=== PATIENT | male | born 1965 | race Caucasian/White ===

== ENCOUNTER 2017-12-11 13:08 | Emergency (ER) | payer SELFPAY ==
[2017-12-11] MEDS ORDERED: IOHEXOL 350 MG/ML 10 ML VIAL (for RAD DIAG) IVCONTRAST ONE (13:09)
[2017-12-11 13:11] VITALS: BP 145/82; PULSE 78; RESP 16; TEMP 98.1; O2SAT 99
[2017-12-11] MEDS ORDERED: SODIUM CHLOR 0.9% 1000 ML INJ 1,000 ML IV SCH (13:15)
[2017-12-11 13:18] VITALS: PULSE 76; RESP 18; O2SAT 98
[2017-12-11 13:21] VITALS: PULSE 79; RESP 18; O2SAT 98
[2017-12-11] MEDS ORDERED: MORPHINE SULFATE 2 MG/ML SYRINGE IV PUSH ONE (13:30)
[2017-12-11] MEDS ORDERED: ONDANSETRON HCL 4 MG/2 ML VIAL IV PUSH ONE (13:30)
--- NOTE | 2017-12-11 13:39 | PD ---
HPI Chief Complaint: GI Complaint Time Seen by Provider: 13:15 Travel History International Travel<30 days: No Contact w/Intl Traveler<30days: No Traveled to known affect area: No History of Present Illness HPI 52-year-old male that presents to the ED for evaluation of severe abdominal pain on the umbilicus moving to the right side. Per patient he has had this for the past 3 days but the pain actually did not became more severe until yesterday. Per patient he went to an urgent care and told to come here for CT scan to rule out appendicitis. Per patient he has had nausea and vomiting and abdominal pain on the umbilicus for the past 3 days but more severe again since yesterday. Pain per patient is 10 out of 10 is stabbing. No history of surgeries to his abdomen. No history of trauma or injury. He does feel he now shows but no vomiting and no bowel movement issues. No fevers chills or sweats. Last ate around 1030 this morning. Has no allergies to medication. Has not taken anything for this. PFS Past Medical History Musculoskeletal: Yes ("BACK PROBLEMS") Past Surgical History Surgical History: No Previous Surgery Social History Alcohol Use: Yes Tobacco Use: Yes Substance Use: No Allergies-Medications (Allergen,Severity, Reaction): Coded Allergies: No Known Allergies (Unverified , 12/11/17) Reported Meds & Prescriptions Reported Meds & Active Scripts Active Diclofenac Sodium DR (Diclofenac Sodium) 75 Mg Tabdr 75 Mg PO BID PRN Review of Systems Except as stated in HPI: all other systems reviewed are Neg Physical Exam Narrative GENERAL: SKIN: Warm and dry. HEAD: Atraumatic. Normocephalic. EYES: Pupils equal and round. No scleral icterus. No injection or drainage. ENT: No nasal bleeding or discharge. Mucous membranes pink and moist. Tongue is midline. No Uvula deviation. NECK: Trachea midline. No JVD. CARDIOVASCULAR: Regular rate and rhythm. No murmurs, S3, S4. RESPIRATORY: No accessory muscle use. Clear to auscultation. Breath sounds equal bilaterally. GASTROINTESTINAL: Abdomen soft, very tender to palpation on the right lower quadrant and umbilicus area, nondistended. Hepatic and splenic margins not palpable. Patient does have what appears to be bulging of the umbilicus MUSCULOSKELETAL: Extremities without clubbing, cyanosis, or edema. No obvious deformities. NEUROLOGICAL: Awake and alert. No obvious cranial nerve deficits. Motor grossly within normal limits. Five out of 5 muscle strength in the arms and legs. Normal speech. PSYCHIATRIC: Appropriate mood and affect; insight and judgment normal. Data Data Last Documented VS Vital Signs Date Time Temp Pulse Resp B/P (MAP) Pulse Ox O2 Delivery O2 Flow Rate FiO2 12/11/17 15:10 70 18 141/84 (103) 98 Room Air 12/11/17 13:11 98.1 Orders Orders Complete Blood Count With Diff (12/11/17 13:15) Comprehensive Metabolic Panel (12/11/17 13:15) Lipase (12/11/17 13:15) Lactic Acid (12/11/17 13:15) Prothrombin Time / Inr (Pt) (12/11/17 13:15) Act Partial Throm Time (Ptt) (12/11/17 13:15) Urinalysis - C+S If Indicated (12/11/17 13:15) Iv Access Insert/Monitor (12/11/17 13:15) Ecg Monitoring (12/11/17 13:15) Oximetry (12/11/17 13:15) Sodium Chlor 0.9% 1000 Ml Inj (Ns 1000 M (12/11/17 13:15) Ct Abd/Pel W Iv Contrast(Rout) (12/11/17 ) Morphine Inj (Morphine Inj) (12/11/17 13:30) Ondansetron Inj (Zofran Inj) (12/11/17 13:30) Labs Laboratory Tests Test 12/11/17 13:18 12/11/17 13:28 Urine Color YELLOW Urine Turbidity CLEAR Urine pH 5.5 Urine Specific [place] 1.023 Urine Protein NEG mg/dL Urine Glucose (UA) NEG mg/dL Urine Ketones NEG mg/dL Urine Occult Blood NEG Urine Nitrite NEG Urine Bilirubin NEG Urine Urobilinogen 2.0 MG/DL Urine Leukocyte Esterase NEG Urine RBC 1 /hpf Urine WBC 1 /hpf Urine Squamous Epithelial Cells <1 /hpf Urine Mucus FEW /lpf Microscopic Urinalysis Comment CULT NOT INDICATED White Blood Count 7.1 TH/MM3 Red Blood Count 5.04 MIL/MM3 Hemoglobin 15.7 GM/DL Hematocrit 44.9 % Mean Corpuscular Volume 89.0 FL Mean Corpuscular Hemoglobin 31.2 PG Mean Corpuscular Hemoglobin Concent 35.1 % Red Cell Distribution Width 13.5 % Platelet Count 275 TH/MM3 Mean Platelet Volume 7.6 FL Neutrophils (%) (Auto) 58.9 % Lymphocytes (%) (Auto) 30.1 % Monocytes (%) (Auto) 8.9 % Eosinophils (%) (Auto) 1.3 % Basophils (%) (Auto) 0.8 % Neutrophils # (Auto) 4.2 TH/MM3 Lymphocytes # (Auto) 2.2 TH/MM3 Monocytes # (Auto) 0.6 TH/MM3 Eosinophils # (Auto) 0.1 TH/MM3 Basophils # (Auto) 0.1 TH/MM3 CBC Comment DIFF FINAL Differential Comment Prothrombin Time 10.8 SEC Prothromb Time International Ratio 1.1 RATIO Activated Partial Thromboplast Time 24.3 SEC Blood Urea Nitrogen 13 MG/DL Creatinine 1.00 MG/DL Random Glucose 77 MG/DL Total Protein 7.2 GM/DL Albumin 4.0 GM/DL Calcium Level 8.6 MG/DL Alkaline Phosphatase 72 U/L Aspartate Amino Transf (AST/SGOT) 14 U/L Alanine Aminotransferase (ALT/SGPT) 17 U/L Total Bilirubin 0.3 MG/DL Sodium Level 140 MEQ/L Potassium Level 4.3 MEQ/L Chloride Level 108 MEQ/L Carbon Dioxide Level 26.5 MEQ/L Anion Gap 6 MEQ/L Estimat Glomerular Filtration Rate 78 ML/MIN Lactic Acid Level 0.9 mmol/L Lipase 114 U/L [facility] Medical Decision Making Medical Screen Exam Complete: Yes Emergency Medical Condition: Yes Medical Record Reviewed: Yes Interpretation(s) CBC & BMP Diagram 12/11/17 13:28 Total Protein 7.2, Albumin 4.0, Calcium Level 8.6, Alkaline Phosphatase 72, Aspartate Amino Transf (AST/SGOT) 14 L, Alanine Aminotransferase (ALT/SGPT) 17, Total Bilirubin 0.3 Last Impressions Abdomen/Pelvis CT 12/11/17 0000 Signed Impressions: Service Date/Time: Monday, December 11, 2017 14:58 - CONCLUSION: No acute CT findings in the abdomen or pelvis Jorge Cade MD lipase WNL Differential Diagnosis Abdominal pain versus appendicitis versus hernia versus strangulate hernia versus normal exam Narrative Course 52-year-old male presents to the ED abolition of abdominal pain. Patient was properly examined and was found to have signs and symptoms concerning for appendicitis versus hernia. Labs and imaging order. Labs and imaging showed no sign of acute disease alert of what appears to be a fat-containing hernia. Patient was reassessed and does feel improved. Patient does have a reducible hernia but he seems to come back up. At this time there is no need for acute treatment. My attending Dr Null was made aware of findings and recommends DC with outpatient follow up. Patient was told this. Patient was given prescription for anti-inflammatory. Told to follow-up with PCP. See ED worsening symptoms. Ice to the area. Patient was instructed as to what to look for in case of hernia emergency. Diagnosis Primary Impression: Umbilical hernia Qualified Codes: K42.9 - Umbilical hernia without obstruction or gangrene Referrals: Edd Cortez MD, Joel L MD White, Mark W. MD Patient Instructions: General Instructions, Narcotic given in the ED Additional Instructions: Take medication as prescribed. Ice to the area as needed. Use of brace under abdomen if he cannot do any heavy lifting. See ED if any worsening symptoms. Follow-up with general surgeon for further management and possible surgical treatment Med/Other Pt SpecificInfo: Prescription(s) given Scripts Diclofenac Sodium (Diclofenac Sodium DR) 75 Mg Tabdr 75 MG PO BID Y for PAIN SCALE 1 TO 10, #20 TAB 0 Refills Prov: Ally Null MD 12/11/17 Disposition: 01 DISCHARGE HOME Condition: Stable Michi Salgado Dec 11, 2017 13:39
[2017-12-11 13:46] LABS: AUTOMATED NEUTROPHIL # 4.2 TH/MM3 (1.8-7.7); BASOPHIL # 0.1 TH/MM3 (0-0.2); BASOPHIL % 0.8 % (0.0-2.0); EOSINOPHIL # 0.1 TH/MM3 (0-0.4); EOSINOPHIL % 1.3 % (0.0-4.0); HEMATOCRIT 44.9 % (39.0-51.0); HEMOGLOBIN 15.7 GM/DL (13.0-17.0); LYMPH % 30.1 % (9.0-44.0); LYMPHOCYTE # 2.2 TH/MM3 (1.0-4.8); MEAN CORPUSCULAR HEMOGLOBIN 31.2 PG (27.0-34.0); MEAN CORPUSCULAR HGB CONC 35.1 % (32.0-36.0); MEAN PLATELET VOLUME 7.6 FL (7.0-11.0); MONO % 8.9 % (0.0-8.0); MONOCYTE # 0.6 TH/MM3 (0-0.9); NEUT % 58.9 % (16.0-70.0); PLATELET COUNT 275 TH/MM3 (150-450); RED BLOOD COUNT 5.04 MIL/MM3 (4.50-5.90); RED CELL DISTRIBUTION WIDTH 13.5 % (11.6-17.2); WHITE BLOOD COUNT 7.1 TH/MM3 (4.0-11.0)
[2017-12-11 13:53] LABS: BILIRUBIN, URINE NEG (NEG); BLOOD, URINE NEG (NEG); GLUCOSE,URINE NEG (NEG); KETONE, URINE NEG (NEG); MUCUS URINE FEW /lpf (OCC); NITRITE,URINE NEG (NEG); PH, URINE 5.5 (5.0-8.5); SQUAMOUS EPITHELIAL CELL URINE <1 /hpf (0-5); URINE COLOR YELLOW (YELLW/STRAW); URINE LEUKOCYTE ESTERASE NEG (NEG)
[2017-12-11 13:55] LABS: INTERNATIONAL NORMALIZED RATIO 1.1 RATIO; PROTHROMBIN TIME - PATIENT 10.8 SEC (9.8-11.6)
[2017-12-11 14:09] LABS: ALT (GPT) 17 U/L (12-78); AST (GOT) 14 U/L (15-37); BICARBONATE 26.5 MEQ/L (21.0-32.0); BLOOD UREA NITROGEN 13 MG/DL (7-18); CALCIUM 8.6 MG/DL (8.5-10.1); CHLORIDE 108 MEQ/L (98-107); GLOMERULAR FILTRATION RATE 78 ML/MIN (>89); GLUCOSE,RANDOM 77 MG/DL (74-106); SODIUM (NA) 140 MEQ/L (136-145)
[2017-12-11 14:11] LABS: ALKALINE PHOSPHATASE 72 U/L (45-117); TOTAL BILIRUBIN ADULT 0.3 MG/DL (0.2-1.0); TOTAL PROTEIN 7.2 GM/DL (6.4-8.2)
[2017-12-11 15:10] VITALS: BP 141/84; PULSE 70; RESP 18; O2SAT 98
--- NOTE | 2017-12-11 15:14 | RADRPT ---
EXAM DATE/TIME: 12/11/2017 14:58 [facility] COMPARISON: No previous studies available for comparison. INDICATIONS : Patient complains of lower abdominal pain. IV CONTRAST: 96 cc Omnipaque 350 (iohexol) IV ORAL CONTRAST: No oral contrast ingested. RADIATION DOSE: 8.1 CTDIvol (mGy) MEDICAL HISTORY : None SURGICAL HISTORY : None. ENCOUNTER: Initial ACUITY: 3 days PAIN SCALE: 5/10 LOCATION: lower quadrant abdomen TECHNIQUE: Volumetric scanning of the abdomen and pelvis was performed. Using automated exposure control and ad justment of the mA and/or kV according to patient size, radiation dose was kept as low as reasonably achievable to obtain optimal diagnostic quality images. DICOM format image data is available electro nically for review and comparison. FINDINGS: LOWER LUNGS: The visualized lower lungs are clear. LIVER: Homogeneous density without lesion. There is no dilation of the biliary tree. No calcified gallston es. SPLEEN: Normal size without lesion. PANCREAS: Within normal limits. KIDNEYS: Normal in size and shape. There is no mass, stone or hydronephrosis. ADRENAL GLANDS: Within normal limits. VASCULAR: There is no aortic aneurysm. BOWEL/MESENTERY: The stomach, small bowel, and colon demonstrate no acute abnormality. There is no free intraperitone al air or fluid. ABDOMINAL WALL: Small fat containing umbilical hernia. RETROPERITONEUM: There is no lymphadenopathy. BLADDER: No wall thickening or mass. REPRODUCTIVE: Within normal limits. INGUINAL: There is no lymphadenopathy or hernia. MUSCULOSKELETAL: Within normal limits for patient age. CONCLUSION: No acute CT findings in the abdomen or pelvis Jorge Cade MD on December 11, 2017 at 15:11 Board Certified Radiologist. This report was verified electronically.
[2017-12-11] MEDS ORDERED: DICL75TA PO (15:32)
== END 2017-12-11 15:50 | disposition home or self-care (01) ==
LOC: NEPE 13:08
DX: K42.9 Umbilical hernia without obstruction or gangrene (principal)
CPT/HCPCS: 74177; 80053; 81001; 83605; 83690; 85025; 85610; 85730; 96374; 96375; 99284; J2270; J2405; J7030; Q9967